=== PATIENT | female | born 1975 | race Hispanic/Latino ===

== ENCOUNTER 2023-12-08 10:45 | Outpatient (CLI) | payer BC, OTHER | END 2023-12-08 10:46 | disposition home or self-care (01) | LOC: BURRAD 10:45 | PROVIDERS: ATTEND Family Medicine | DX: M79.671 Pain in right foot (principal); M75.22 Bicipital tendinitis, left shoulder; M77.31 Calcaneal spur, right foot; M72.2 Plantar fascial fibromatosis; M19.071 Primary osteoarthritis, right ankle and foot; M25.871 Other specified joint disorders, right ankle and foot ==